=== PATIENT | female | born 1945 | race Two or more races ===

== ENCOUNTER 2020-08-21 10:38 | Day surgery (SDC) | payer OTHER ==
[2020-08-19 16:10] VITALS: BMI 24.7
[2020-08-21] MEDS ORDERED: PROPOFOL 20 ML ONE ×2 (11:34)
[2020-08-21 13:49] VITALS: TEMP 97.8
[2020-08-21 13:51] VITALS: BP 110/65; PULSE 78
== END 2020-08-21 12:40 | disposition home or self-care (01) ==
LOC: FASU-ENDO 10:38
PROVIDERS: ATTEND Internal Medicine Gastroenterology
PROC: 0DJD8ZZ Inspection of Lower Intestinal Tract, Via Natural or Artificial Opening Endoscopic (ICD-10-PCS; principal; 2020-08-21 11:47)
DX: Z12.11 Encounter for screening for malignant neoplasm of colon (principal); Z86.010 Personal history of colon polyps; K64.8 Other hemorrhoids